=== PATIENT | female | born 1965 | race Caucasian/White ===

== ENCOUNTER → 2016-10-02 | Outpatient (CLI) | payer OTHER ==
[~2016-10-02] MED LIST: BACL10TA2 PO; BENEPOW8; BUPIVACAINE HCL 0.25% 30 ML VIAL As Ordered ONE; ISOVUE-M 300 61% 15ML VIAL (Q9967) As Ordered ONE; LIDOCAINE 1% SDV INJ 30 ML VIAL As Ordered ONE; MOBI15TA PO; Maxalt; NEUR300C PO; ROBA750T4 PO; TIZA2CAP3 PO; TOPI100T; TRAM50TA2 PO
--- NOTE | 2016-10-02 11:37 | REP ---
Partial lumbar spine series: two views. History: Facet block for pain. 18 seconds of fluoroscopy time is reported. Findings: A sequence of two fluoroscopically obtained intraprocedural spot radiographs of the lumbar spine document needle position and contrast injections associated with facet injection procedures. Signed by Rigoberto Munson MD 10/02/2016 12:09 P
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
== END ==
LOC: M PAIN 10:10
PROVIDERS: ATTEND Anesthesiology
DX: G89.29 Other chronic pain (principal); M54.5 Low back pain; M47.817 Spondylosis without myelopathy or radiculopathy, lumbosacral region; M47.816 Spondylosis without myelopathy or radiculopathy, lumbar region; Z79.84 Long term (current) use of oral hypoglycemic drugs; Z79.899 Other long term (current) drug therapy; Z91.030 Bee allergy status; Z88.8 Allergy status to other drugs, medicaments and biological substances

== ENCOUNTER 2016-11-06 22:06 | Emergency (ER) | payer OTHER ==
[~2016-11-06 22:06] MED LIST changes: -BUPIVACAINE HCL 0.25% 30 ML VIAL As Ordered ONE; -ISOVUE-M 300 61% 15ML VIAL (Q9967) As Ordered ONE; -LIDOCAINE 1% SDV INJ 30 ML VIAL As Ordered ONE
[2016-11-06] MEDS ORDERED: diphenhydrAMINE 25 MG CAP As Ordered ONE (23:34)
[2016-11-06] MEDS ORDERED: predniSONE 20 MG TAB As Ordered ONE (23:35)
[2016-11-06] MEDS ORDERED: CEPHALEXIN 250 MG CAP As Ordered ONE (23:35)
--- NOTE | 2016-11-06 23:51 | EDDOCDS ---
Nurse's Notes [facility] Name: Debra Hamilton Age: 51 yrs Sex: Female : 1965 Arrival Date: 11/06/2016 Time: 22:06 Bed Triage 1 Private MD: Diagnosis: Cellulitis and acute lymphangitis of other parts of limb-left forearm Presentation: 11/06 22:11 Presenting complaint: Patient states: flea bites on left hand . swelling, itching in rs3 left forearm for 2 days. Onset: The symptoms/episode began/occurred gradually. This patient has not experienced a previous allergic reaction. Anaphylaxis evaluation, the patient reports or I have noted the following symptoms which indicate a significant risk of anaphylaxis: no signs or symptoms of anaphylaxis were noted. Adult Sepsis Screening: The patient does not have new or worsening altered mentation. Patient's respiratory rate is less than 22. Systolic blood pressure is greater than 100. Patient has a qSOFA score of 0- Negative Sepsis Screen. Suicide/Homicide risk assessment- the patient denies having any suicidal and/or homicidal ideations and does not present with any other emotional, behavioral or mental health complaints. Status: Patient is not a family services assistant or dependent. Transition of care: patient was not received from another setting of care. 22:11 Acuity: CHRIS Level 4 rs3 22:11 Method Of Arrival: Walkin/Carried/Asstd rs3 Triage Assessment: 22:15 General: Appears in no apparent distress. Pain: Denies pain. Location: left arm. HIV rs3 screening NA for this visit Offered previously. Respiratory: Reports no respiratory complaints. 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 metformin 500 mg Oral tab 1 tab 2 times per day 2. Marinol Oral 1 cap once daily 3. Spiriva Respimat 1.25 mcg/actuation inhalation mist 2 puffs once daily - PMHx: Chronic Pain; Diabetes - NIDDM: controlled; - PSHx: ; Cholecystectomy; - Social history: Smoking status: Patient uses tobacco products, light tobacco smoker. No barriers to communication noted, The patient speaks fluent Hungarian. - Family history: Not pertinent. - : The pt / caregiver states he / she is not on anticoagulants. Home medication list is obtained from the patient. - Exposure Risk Screening:: None identified. Screenin:38 Screening information is obtained from the patient. Fall risk: No risks identified. lf1 Assistance ADL's: requires no assistance with activities of daily living. Abuse/DV Screen: The patient / caregiver reports he/she is:. Abuse/DV Screen: The patient / caregiver reports he/she is: not in a situation that causes fear, pain or injury. Nutritional screening: No deficits noted. Advance Directives: Currently, there is no health care proxy. home support is adequate. Assessment: 23:38 Adult Sepsis Screening: The patient does not have new or worsening altered mentation. lf1 Patient's respiratory rate is less than 22. Systolic blood pressure is greater than 100. Patient has a qSOFA score of 0- Negative Sepsis Screen. General: Appears in no apparent distress, Behavior is cooperative. Pain: Location: left hand Pain currently is 1 out of 10 on a pain scale. Neurological: Level of Consciousness is awake, alert. EENT: No deficits noted. Cardiovascular: Chest pain is denied. Respiratory: Respiratory effort is even, unlabored. GI: Denies nausea, vomiting. Derm: Swollen area noted on left hand. Vital Signs: 22:09 BP 148 / 72; Pulse 81; Resp 17; Temp 97.1(O); Pulse Ox 98% on R/A; Weight 43.09 kg (R); lr2 Height 5 ft. 2 in. (157.48 cm) (R); 23:38 BP 133 / 77; Pulse 73; Resp 16; Pulse Ox 97% on R/A; Pain 1/10; lf1 22:09 Body Mass Index 17.38 (43.09 kg, 157.48 cm) lr2 Vitals: 22:09 Log In Time: November 06, 2016 at 22:06. lr2 ED Course: 22:08 Patient visited by Sravanthi Mcfarland. lr2 22:08 Patient moved to Waiting lr2 22:08 Patient moved to Pre RCE lr2 22:13 Triage Initiated rs3 23:14 Patient moved to Triage 1 jo3 23:23 [facility] ke 23:23 Patient visited by Iggy Jonhson FNP. ke 23:23 Patient visited by Iggy Johnson FNP. ke 23:38 No IV's were initiated during this patient's visit. No procedures done that require lf1 assistance. 23:50 The patient / caregiver is instructed regarding the plan of care and ED course. lf1 Administered Medications: 23:48 Drug: diphenhydrAMINE 50 mg [diphenhydramine 25 mg capsule (2 caps)] {Note: meds lf1 dispensed home with pt. - she is driving.} Route: PO; 23:49 Drug: Cephalexin 500 mg [cephalexin 250 mg capsule (2 caps)] Route: PO; lf1 23:49 Follow up: Response: Pt left department before re-evaluation is appropriate lf1 23:49 Drug: predniSONE 40 mg [prednisone 20 mg tablet (2 tabs)] Route: PO; lf1 23:50 Follow up: Response: Pt left department before re-evaluation is appropriate lf1 Order Results: There are currently no results for this order. Outcome: 23:34 Discharge ordered by Provider. ke 23:50 Discharge Assessment: Patient awake, alert and oriented x 3. No cognitive and/or lf1 functional deficits noted. Patient verbalized understanding of disposition instructions. Patient awake and alert. Oriented to person, place and time. Patient verbalized understanding of disposition instructions. Patient has no functional deficits. patient administered narcotics - no. The following High Risk Discharge criteria are identified: None. Discharged to home ambulatory. Condition: unchanged. Discharge instructions given to patient, Instructed on discharge instructions, follow up and referral plans. medication usage, Demonstrated understanding of instructions, medications, Pt was receptive of discharge instructions/ teaching. Prescriptions given X 3. No special radiology studies were completed. Property :Personal belongings accompany Pt. 23:51 Patient left the ED. lf1 Signatures: Iggy Johnson, LEGAL DEPARTMENT MANAGER LEGAL DEPARTMENT MANAGER Nakia NguyenRN RN jo3 Skye HensleyRN RN lf1 Mary Ellen Rosario,RN RN karoline3 Sravanthi Mcfarland2 MTDD
--- NOTE | 2016-11-06 23:51 | EDDOCDS ---
Physician Documentation [facility] Name: Debra Hamilton Age: 51 yrs Sex: Female : 1965 Arrival Date: 11/06/2016 Time: 22:06 Bed Triage 1 Private MD: Disposition: 11/06/16 23:34 Discharged to Home/Self Care. Impression: Cellulitis and acute lymphangitis of other parts of limb - left forearm. - Condition is Stable. - Discharge Instructions: Allergies, Cellulitis. - Prescriptions for Benadryl 25 mg Oral Capsule - take 1 capsule by ORAL route every 6 hours As needed; 30 tablet. Keflex 500 mg Oral Capsule - take 1 capsule by ORAL route every 6 hours for 10 days; 40 capsule. Prednisone 20 mg Oral Tablet - take 1 tablet by ORAL route once daily for 5 days; 5 tablet. - Medication Reconciliation, Local Pharmacy Hours form. - Follow up: Private Physician; When: 1 - 2 days; Reason: Recheck today's complaints, Continuance of care. - Problem is an ongoing problem. - Symptoms are unchanged. - Notes: return if worse Historical: - Allergies: Bees; GABAPENTIN (makes me crazy); - Home Meds: 1. metformin 500 mg Oral tab 1 tab 2 times per day 2. Marinol Oral 1 cap once daily 3. Spiriva Respimat 1.25 mcg/actuation inhalation mist 2 puffs once daily - PMHx: Chronic Pain; Diabetes - NIDDM: controlled; - PSHx: ; Cholecystectomy; - Social history: Smoking status: Patient uses tobacco products, light tobacco smoker. No barriers to communication noted, The patient speaks fluent Ukrainian. - Family history: Not pertinent. - : The pt / caregiver states he / she is not on anticoagulants. Home medication list is obtained from the patient. - Exposure Risk Screening:: None identified. 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 2 in. (157.48 cm) (R); 23:38 BP 133 / 77; Pulse 73; Resp 16; Pulse Ox 97% on R/A; Pain 1/10; lf1 22:09 Body Mass Index 17.38 (43.09 kg, 157.48 cm) lr2 MDM: 23:32 Cephalexin 500 mg PO once ordered. ke 23:32 predniSONE 40 mg PO once; administer with food or milk ordered. ke 23:32 diphenhydrAMINE 50 mg PO once ordered. ke 23:39 Financial registration complete. hs2 Administered Medications: 23:48 Drug: diphenhydrAMINE 50 mg [diphenhydramine 25 mg capsule (2 caps)] {Note: meds lf1 dispensed home with pt. - she is driving.} Route: PO; 23:49 Drug: Cephalexin 500 mg [cephalexin 250 mg capsule (2 caps)] Route: PO; lf1 23:49 Follow up: Response: Pt left department before re-evaluation is appropriate lf1 23:49 Drug: predniSONE 40 mg [prednisone 20 mg tablet (2 tabs)] Route: PO; lf1 23:50 Follow up: Response: Pt left department before re-evaluation is appropriate [facility] Signatures: Iggy Johnson, PHOTOSTAT OPERATOR HELPER PHOTOSTAT OPERATOR HELPER Skye AvitiaRN RN lf1 Mary Ellen RosarioRN RN rs3 Shelia Appiah, Reg Reg hs2 MTDD
--- NOTE | 2016-11-09 00:52 | EDDOCDS ---
Physician Documentation [facility] Name: Debra Hamilton Age: 51 yrs Sex: Female : 1965 Arrival Date: 11/06/2016 Time: 22:06 Bed Triage 1 Private MD: Disposition: 11/06/16 23:34 Discharged to Home/Self Care. Impression: Cellulitis and acute lymphangitis of other parts of limb - left forearm. - Condition is Stable. - Discharge Instructions: Allergies, Cellulitis. - Prescriptions for Benadryl 25 mg Oral Capsule - take 1 capsule by ORAL route every 6 hours As needed; 30 tablet. Keflex 500 mg Oral Capsule - take 1 capsule by ORAL route every 6 hours for 10 days; 40 capsule. Prednisone 20 mg Oral Tablet - take 1 tablet by ORAL route once daily for 5 days; 5 tablet. - Medication Reconciliation, Local Pharmacy Hours form. - Follow up: Private Physician; When: 1 - 2 days; Reason: Recheck today's complaints, Continuance of care. - Problem is an ongoing problem. - Symptoms are unchanged. - Notes: return if worse Historical: - Allergies: Bees; GABAPENTIN (makes me crazy); - Home Meds: 1. metformin 500 mg Oral tab 1 tab 2 times per day 2. Marinol Oral 1 cap once daily 3. Spiriva Respimat 1.25 mcg/actuation inhalation mist 2 puffs once daily - PMHx: Chronic Pain; Diabetes - NIDDM: controlled; - PSHx: ; Cholecystectomy; - Social history: Smoking status: Patient uses tobacco products, light tobacco smoker. No barriers to communication noted, The patient speaks fluent Faroese. - Family history: Not pertinent. - : The pt / caregiver states he / she is not on anticoagulants. Home medication list is obtained from the patient. - Exposure Risk Screening:: None identified. 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 2 in. (157.48 cm) (R); 23:38 BP 133 / 77; Pulse 73; Resp 16; Pulse Ox 97% on R/A; Pain 1/10; lf1 22:09 Body Mass Index 17.38 (43.09 kg, 157.48 cm) lr2 MDM: 23:32 Cephalexin 500 mg PO once ordered. ke 23:32 predniSONE 40 mg PO once; administer with food or milk ordered. ke 23:32 diphenhydrAMINE 50 mg PO once ordered. ke 23:39 Financial registration complete. hs2 11/07 00:04 [facility] Payment Agreement was scanned into [employer] and attached to record. hs2 12:04 T-Sheet-- Draft Copy was scanned into [employer] and attached to record. gb Administered Medications: 11/06 23:48 Drug: diphenhydrAMINE 50 mg [diphenhydramine 25 mg capsule (2 caps)] {Note: meds lf1 dispensed home with pt. - she is driving.} Route: PO; 23:49 Drug: Cephalexin 500 mg [cephalexin 250 mg capsule (2 caps)] Route: PO; lf1 23:49 Follow up: Response: Pt left department before re-evaluation is appropriate lf1 23:49 Drug: predniSONE 40 mg [prednisone 20 mg tablet (2 tabs)] Route: PO; lf1 23:50 Follow up: Response: Pt left department before re-evaluation is appropriate lf1 Signatures: Mary Palencia, Reg Reg gb Iggy Johnson, IMPORT CUSTOMS CLEARING AGENT IMPORT CUSTOMS CLEARING AGENT Skye AvitiaRN RN lf1 Mary Ellen Rosario RN RN rs3 Shelia Appiah, Reg Reg hs2 The chart was reviewed and I authenticate all verbal orders and agree with the evaluation and treatment provided.Attachments: 11/07 00:04 [facility] Payment Agreement hs2 12:04 T-Sheet-- Draft Copy gb Chart Complete MTDD
--- NOTE | 2016-11-09 00:52 | EDDOCDS ---
Physician Documentation [facility] Name: Debra Hamilton Age: 51 yrs Sex: Female : 1965 Arrival Date: 11/06/2016 Time: 22:06 Bed Triage 1 Private MD: Disposition: 11/06/16 23:34 Discharged to Home/Self Care. Impression: Cellulitis and acute lymphangitis of other parts of limb - left forearm. - Condition is Stable. - Discharge Instructions: Allergies, Cellulitis. - Prescriptions for Benadryl 25 mg Oral Capsule - take 1 capsule by ORAL route every 6 hours As needed; 30 tablet. Keflex 500 mg Oral Capsule - take 1 capsule by ORAL route every 6 hours for 10 days; 40 capsule. Prednisone 20 mg Oral Tablet - take 1 tablet by ORAL route once daily for 5 days; 5 tablet. - Medication Reconciliation, Local Pharmacy Hours form. - Follow up: Private Physician; When: 1 - 2 days; Reason: Recheck today's complaints, Continuance of care. - Problem is an ongoing problem. - Symptoms are unchanged. - Notes: return if worse Historical: - Allergies: Bees; GABAPENTIN (makes me crazy); - Home Meds: 1. metformin 500 mg Oral tab 1 tab 2 times per day 2. Marinol Oral 1 cap once daily 3. Spiriva Respimat 1.25 mcg/actuation inhalation mist 2 puffs once daily - PMHx: Chronic Pain; Diabetes - NIDDM: controlled; - PSHx: ; Cholecystectomy; - Social history: Smoking status: Patient uses tobacco products, light tobacco smoker. No barriers to communication noted, The patient speaks fluent Serbian. - Family history: Not pertinent. - : The pt / caregiver states he / she is not on anticoagulants. Home medication list is obtained from the patient. - Exposure Risk Screening:: None identified. 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 2 in. (157.48 cm) (R); 23:38 BP 133 / 77; Pulse 73; Resp 16; Pulse Ox 97% on R/A; Pain 1/10; lf1 22:09 Body Mass Index 17.38 (43.09 kg, 157.48 cm) lr2 MDM: 23:32 Cephalexin 500 mg PO once ordered. ke 23:32 predniSONE 40 mg PO once; administer with food or milk ordered. ke 23:32 diphenhydrAMINE 50 mg PO once ordered. ke 23:39 Financial registration complete. hs2 11/07 00:04 [facility] Payment Agreement was scanned into [employer] and attached to record. hs2 12:04 T-Sheet-- Draft Copy was scanned into [employer] and attached to record. gb Administered Medications: 11/06 23:48 Drug: diphenhydrAMINE 50 mg [diphenhydramine 25 mg capsule (2 caps)] {Note: meds lf1 dispensed home with pt. - she is driving.} Route: PO; 23:49 Drug: Cephalexin 500 mg [cephalexin 250 mg capsule (2 caps)] Route: PO; lf1 23:49 Follow up: Response: Pt left department before re-evaluation is appropriate lf1 23:49 Drug: predniSONE 40 mg [prednisone 20 mg tablet (2 tabs)] Route: PO; lf1 23:50 Follow up: Response: Pt left department before re-evaluation is appropriate lf1 Signatures: Mary Palencia, Reg Reg gb Iggy Johnson, BUSINESS INSTRUCTOR BUSINESS INSTRUCTOR Skye AvitiaRN RN lf1 Mary Ellen Rosario RN RN rs3 Shelia Appiah, Reg Reg hs2 The chart was reviewed and I authenticate all verbal orders and agree with the evaluation and treatment provided.Attachments: 11/07 00:04 [facility] Payment Agreement hs2 12:04 T-Sheet-- Draft Copy gb Chart Complete MTDD
--- NOTE | 2016-11-09 00:52 | EDDOCDS ---
Nurse's Notes [facility] Name: Debra Hamilton Age: 51 yrs Sex: Female : 1965 Arrival Date: 11/06/2016 Time: 22:06 Bed Triage 1 Private MD: Diagnosis: Cellulitis and acute lymphangitis of other parts of limb-left forearm Presentation: 11/06 22:11 Presenting complaint: Patient states: flea bites on left hand . swelling, itching in rs3 left forearm for 2 days. Onset: The symptoms/episode began/occurred gradually. This patient has not experienced a previous allergic reaction. Anaphylaxis evaluation, the patient reports or I have noted the following symptoms which indicate a significant risk of anaphylaxis: no signs or symptoms of anaphylaxis were noted. Adult Sepsis Screening: The patient does not have new or worsening altered mentation. Patient's respiratory rate is less than 22. Systolic blood pressure is greater than 100. Patient has a qSOFA score of 0- Negative Sepsis Screen. Suicide/Homicide risk assessment- the patient denies having any suicidal and/or homicidal ideations and does not present with any other emotional, behavioral or mental health complaints. Status: Patient is not a customer service analyst or dependent. Transition of care: patient was not received from another setting of care. 22:11 Acuity: CHRIS Level 4 rs3 22:11 Method Of Arrival: Walkin/Carried/Asstd rs3 Triage Assessment: 22:15 General: Appears in no apparent distress. Pain: Denies pain. Location: left arm. HIV rs3 screening NA for this visit Offered previously. Respiratory: Reports no respiratory complaints. MOHS SURGEON: 22:16 LMP N/A - Post-menopause rs3 Historical: - Allergies: Bees; GABAPENTIN (makes me crazy); - Home Meds: 1. metformin 500 mg Oral tab 1 tab 2 times per day 2. Marinol Oral 1 cap once daily 3. Spiriva Respimat 1.25 mcg/actuation inhalation mist 2 puffs once daily - PMHx: Chronic Pain; Diabetes - NIDDM: controlled; - PSHx: ; Cholecystectomy; - Social history: Smoking status: Patient uses tobacco products, light tobacco smoker. No barriers to communication noted, The patient speaks fluent Turkmen. - Family history: Not pertinent. - : The pt / caregiver states he / she is not on anticoagulants. Home medication list is obtained from the patient. - Exposure Risk Screening:: None identified. Screenin:38 Screening information is obtained from the patient. Fall risk: No risks identified. lf1 Assistance ADL's: requires no assistance with activities of daily living. Abuse/DV Screen: The patient / caregiver reports he/she is:. Abuse/DV Screen: The patient / caregiver reports he/she is: not in a situation that causes fear, pain or injury. Nutritional screening: No deficits noted. Advance Directives: Currently, there is no health care proxy. home support is adequate. Assessment: 23:38 Adult Sepsis Screening: The patient does not have new or worsening altered mentation. lf1 Patient's respiratory rate is less than 22. Systolic blood pressure is greater than 100. Patient has a qSOFA score of 0- Negative Sepsis Screen. General: Appears in no apparent distress, Behavior is cooperative. Pain: Location: left hand Pain currently is 1 out of 10 on a pain scale. Neurological: Level of Consciousness is awake, alert. EENT: No deficits noted. Cardiovascular: Chest pain is denied. Respiratory: Respiratory effort is even, unlabored. GI: Denies nausea, vomiting. Derm: Swollen area noted on left hand. Vital Signs: 22:09 BP 148 / 72; Pulse 81; Resp 17; Temp 97.1(O); Pulse Ox 98% on R/A; Weight 43.09 kg (R); lr2 Height 5 ft. 2 in. (157.48 cm) (R); 23:38 BP 133 / 77; Pulse 73; Resp 16; Pulse Ox 97% on R/A; Pain 1/10; lf1 22:09 Body Mass Index 17.38 (43.09 kg, 157.48 cm) lr2 Vitals: 22:09 Log In Time: November 06, 2016 at 22:06. lr2 ED Course: 22:08 Patient visited by Sravanthi Mcfarland. lr2 22:08 Patient moved to Waiting lr2 22:08 Patient moved to Pre RCE lr2 22:13 Triage Initiated rs3 23:14 Patient moved to Triage 1 jo3 23:23 Iggy Johnson FNP is [facility]. ke 23:23 Patient visited by Iggy Johnson FNP. ke 23:23 Patient visited by Iggy Johnson FNP. ke 23:38 No IV's were initiated during this patient's visit. No procedures done that require lf1 assistance. 23:50 The patient / caregiver is instructed regarding the plan of care and ED course. lf1 11/07 00:04 [facility] Payment Agreement was scanned into [employer] and attached to record. hs2 12:04 T-Sheet-- Draft Copy was scanned into [employer] and attached to record. gb Administered Medications: 11/06 23:48 Drug: diphenhydrAMINE 50 mg [diphenhydramine 25 mg capsule (2 caps)] {Note: meds lf1 dispensed home with pt. - she is driving.} Route: PO; 23:49 Drug: Cephalexin 500 mg [cephalexin 250 mg capsule (2 caps)] Route: PO; lf1 23:49 Follow up: Response: Pt left department before re-evaluation is appropriate lf1 23:49 Drug: predniSONE 40 mg [prednisone 20 mg tablet (2 tabs)] Route: PO; lf1 23:50 Follow up: Response: Pt left department before re-evaluation is appropriate lf1 Order Results: There are currently no results for this order. Outcome: 23:34 Discharge ordered by Provider. ke 23:50 Discharge Assessment: Patient awake, alert and oriented x 3. No cognitive and/or lf1 functional deficits noted. Patient verbalized understanding of disposition instructions. Patient awake and alert. Oriented to person, place and time. Patient verbalized understanding of disposition instructions. Patient has no functional deficits. patient administered narcotics - no. The following High Risk Discharge criteria are identified: None. Discharged to home ambulatory. Condition: unchanged. Discharge instructions given to patient, Instructed on discharge instructions, follow up and referral plans. medication usage, Demonstrated understanding of instructions, medications, Pt was receptive of discharge instructions/ teaching. Prescriptions given X 3. No special radiology studies were completed. Property :Personal belongings accompany Pt. 23:51 Patient left the ED. lf1 Signatures: Mary Palencia, Reg Reg gb Iggy Johnson, PRODUCTION DRILLING MACHINE OPERATOR PRODUCTION DRILLING MACHINE OPERATOR Nakia NguyenRN RN theresa3 Skye Hensley RN RN lf1 Mary Ellen Rosario RN RN rs3 Shelia Appiah, Reg Reg hs2 Sravanthi Mcfarland2 Chart Complete MTDD
== END 2016-11-06 23:51 | disposition home or self-care (01) ==
LOC: M ED 22:06
DX: L03.114 Cellulitis of left upper limb (principal); G89.29 Other chronic pain; E11.9 Type 2 diabetes mellitus without complications; F17.210 Nicotine dependence, cigarettes, uncomplicated; Z79.84 Long term (current) use of oral hypoglycemic drugs; Z91.030 Bee allergy status; Z79.899 Other long term (current) drug therapy; Z88.8 Allergy status to other drugs, medicaments and biological substances

== ENCOUNTER → 2016-11-27 | Outpatient (CLI) | payer OTHER ==
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
== END ==
LOC: M PAIN 14:40
PROVIDERS: ATTEND Nurse Practitioner Family
DX: Z09 Encounter for follow-up examination after completed treatment for conditions other than malignant neoplasm (principal); G89.21 Chronic pain due to trauma; M47.816 Spondylosis without myelopathy or radiculopathy, lumbar region; M79.1 Myalgia; J44.9 Chronic obstructive pulmonary disease, unspecified; Z91.030 Bee allergy status; Z88.8 Allergy status to other drugs, medicaments and biological substances; Z79.84 Long term (current) use of oral hypoglycemic drugs; Z79.899 Other long term (current) drug therapy

== ENCOUNTER → 2016-12-10 | Outpatient (REF) | payer OTHER | LOC: M LAB REF 12:41 | PROVIDERS: ATTEND Physician Assistant | DX: J02.9 Acute pharyngitis, unspecified (principal) ==

== ENCOUNTER → 2017-01-21 | Outpatient (CLI) | payer OTHER ==
[~2017-01-21] MED LIST changes: +BUPIVACAINE HCL 0.25% 30 ML VIAL As Ordered ONE; +ISOVUE-M 300 61% 15ML VIAL (Q9967) As Ordered ONE; +LIDOCAINE 1% SDV INJ 30 ML VIAL As Ordered ONE; +TRIAMCINOLONE ACETONIDE SUSP 40 MG/ML VIAL (J3301) As Ordered ONE
--- NOTE | 2017-01-21 15:48 | REP ---
FACET BLOCK: The images were reviewed with Dr. Gambino. The patient has a history of back pain. The portable C-arm was provided in the OR for Dr. Benitez for fluoroscopy guidance. Three intraoperative fluoroscopic spot films were obtained for needle placement verification for right lumbar facet injection. The films are on the PACs system and are available for review. 31 seconds of fluoroscopic time was utilized for this procedure. Reviewed by MEME Cox 01/21/2017 04:17 PEdited and Signed by Victor M Gambino MD 01/21/2017 04:42 P
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
== END ==
LOC: M PAIN 11:00
PROVIDERS: ATTEND Anesthesiology
DX: G89.29 Other chronic pain (principal); M47.816 Spondylosis without myelopathy or radiculopathy, lumbar region; M47.817 Spondylosis without myelopathy or radiculopathy, lumbosacral region; M79.1 Myalgia; J44.9 Chronic obstructive pulmonary disease, unspecified; Z91.030 Bee allergy status; Z88.8 Allergy status to other drugs, medicaments and biological substances; Z79.899 Other long term (current) drug therapy
CPT/HCPCS: 64635; 64636; J3301; Q9967

== ENCOUNTER → 2017-02-11 | Outpatient (CLI) | payer OTHER ==
[~2017-02-11] MED LIST changes: -BUPIVACAINE HCL 0.25% 30 ML VIAL As Ordered ONE; -ISOVUE-M 300 61% 15ML VIAL (Q9967) As Ordered ONE; -LIDOCAINE 1% SDV INJ 30 ML VIAL As Ordered ONE; -TRIAMCINOLONE ACETONIDE SUSP 40 MG/ML VIAL (J3301) As Ordered ONE
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
== END ==
LOC: M PAIN 14:40
PROVIDERS: ATTEND Nurse Practitioner Family
DX: G89.29 Other chronic pain (principal); M79.1 Myalgia; M47.817 Spondylosis without myelopathy or radiculopathy, lumbosacral region; J44.9 Chronic obstructive pulmonary disease, unspecified; Z88.0 Allergy status to penicillin; Z88.8 Allergy status to other drugs, medicaments and biological substances; Z79.899 Other long term (current) drug therapy

== ENCOUNTER → 2017-02-23 | Outpatient (CLI) | payer OTHER ==
[~2017-02-23] MED LIST changes: +BUPIVACAINE HCL 0.25% 10 ML VIAL As Ordered ONE; +BUPIVACAINE HCL 0.25% 30 ML VIAL As Ordered ONE; +TRIAMCINOLONE ACETONIDE SUSP 40 MG/ML VIAL (J3301) As Ordered ONE
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
== END ==
LOC: M PAIN 13:40
PROVIDERS: ATTEND Anesthesiology
DX: G89.29 Other chronic pain (principal); M79.1 Myalgia; M25.511 Pain in right shoulder; M54.2 Cervicalgia; M54.5 Low back pain; J44.9 Chronic obstructive pulmonary disease, unspecified; Z72.0 Tobacco use; Z91.030 Bee allergy status; Z88.8 Allergy status to other drugs, medicaments and biological substances; Z79.891 Long term (current) use of opiate analgesic; Z79.899 Other long term (current) drug therapy

== ENCOUNTER → 2017-03-13 | Outpatient (CLI) | payer OTHER ==
[~2017-03-13] MED LIST changes: -BUPIVACAINE HCL 0.25% 10 ML VIAL As Ordered ONE; -BUPIVACAINE HCL 0.25% 30 ML VIAL As Ordered ONE; -TRIAMCINOLONE ACETONIDE SUSP 40 MG/ML VIAL (J3301) As Ordered ONE
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
== END ==
LOC: M PAIN 14:20
PROVIDERS: ATTEND Anesthesiology
DX: M79.1 Myalgia (principal); M54.5 Low back pain; M54.2 Cervicalgia; Z79.891 Long term (current) use of opiate analgesic; Z79.899 Other long term (current) drug therapy; F17.210 Nicotine dependence, cigarettes, uncomplicated; J44.9 Chronic obstructive pulmonary disease, unspecified; Z88.8 Allergy status to other drugs, medicaments and biological substances; Z91.030 Bee allergy status

== ENCOUNTER → 2017-04-09 | Outpatient (CLI) | payer OTHER ==
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
== END ==
LOC: M PAIN 14:20
PROVIDERS: ATTEND Anesthesiology
DX: G89.29 Other chronic pain (principal); M51.16 Intervertebral disc disorders with radiculopathy, lumbar region; M79.1 Myalgia; J44.9 Chronic obstructive pulmonary disease, unspecified; Z91.030 Bee allergy status; Z88.8 Allergy status to other drugs, medicaments and biological substances; Z79.891 Long term (current) use of opiate analgesic; Z79.899 Other long term (current) drug therapy

== ENCOUNTER → 2017-04-27 | Outpatient (CLI) | payer OTHER ==
[~2017-04-27] MED LIST changes: +BUPIVACAINE HCL 0.25% 10 ML VIAL As Ordered ONE; +BUPIVACAINE HCL 0.25% 30 ML VIAL As Ordered ONE; +TRIAMCINOLONE ACETONIDE SUSP 40 MG/ML VIAL (J3301) As Ordered ONE
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
== END ==
LOC: M PAIN 08:40
PROVIDERS: ATTEND Anesthesiology
DX: G89.29 Other chronic pain (principal); M54.2 Cervicalgia; M54.5 Low back pain; M79.1 Myalgia; J44.9 Chronic obstructive pulmonary disease, unspecified; Z91.030 Bee allergy status; Z88.8 Allergy status to other drugs, medicaments and biological substances; Z79.899 Other long term (current) drug therapy
CPT/HCPCS: 20553; J3301

== ENCOUNTER → 2017-06-16 | Outpatient (CLI) | payer OTHER ==
[~2017-06-16] MED LIST changes: -BUPIVACAINE HCL 0.25% 10 ML VIAL As Ordered ONE; -BUPIVACAINE HCL 0.25% 30 ML VIAL As Ordered ONE; -TRIAMCINOLONE ACETONIDE SUSP 40 MG/ML VIAL (J3301) As Ordered ONE
== END ==
LOC: M PAIN 11:00
PROVIDERS: ATTEND Nurse Practitioner Family
DX: Z53.29 Procedure and treatment not carried out because of patient's decision for other reasons (principal)

== ENCOUNTER → 2017-07-01 | Outpatient (CLI) | payer OTHER ==
[~2017-07-01] MED LIST changes: +BUPIVACAINE HCL 0.25% 10 ML VIAL As Ordered ONE; +BUPIVACAINE HCL 0.25% 30 ML VIAL As Ordered ONE; +TRIAMCINOLONE ACETONIDE SUSP 40 MG/ML VIAL (J3301) As Ordered ONE
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
== END ==
LOC: M PAIN 09:15
PROVIDERS: ATTEND Nurse Practitioner Family
DX: G89.29 Other chronic pain (principal); M47.817 Spondylosis without myelopathy or radiculopathy, lumbosacral region; M79.1 Myalgia; J44.9 Chronic obstructive pulmonary disease, unspecified; Z91.030 Bee allergy status; Z88.8 Allergy status to other drugs, medicaments and biological substances; Z79.891 Long term (current) use of opiate analgesic; Z79.899 Other long term (current) drug therapy; Z87.891 Personal history of nicotine dependence

== ENCOUNTER → 2017-07-02 | Outpatient (CLI) | payer OTHER ==
[~2017-07-02] MED LIST changes: -BUPIVACAINE HCL 0.25% 10 ML VIAL As Ordered ONE; -BUPIVACAINE HCL 0.25% 30 ML VIAL As Ordered ONE; +BUPIVACAINE HCL 0.25% 30 ML VIAL ONE; -TRIAMCINOLONE ACETONIDE SUSP 40 MG/ML VIAL (J3301) As Ordered ONE
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
== END ==
LOC: M PAIN 14:00
PROVIDERS: ATTEND Anesthesiology
DX: G89.29 Other chronic pain (principal); M54.2 Cervicalgia; M54.6 Pain in thoracic spine; M79.1 Myalgia; J44.9 Chronic obstructive pulmonary disease, unspecified; Z91.030 Bee allergy status; Z88.8 Allergy status to other drugs, medicaments and biological substances; Z79.891 Long term (current) use of opiate analgesic; Z79.899 Other long term (current) drug therapy; Z87.891 Personal history of nicotine dependence

== ENCOUNTER 2017-07-20 07:46 | Outpatient (RCR) | payer OTHER ==
[~2017-07-20 07:46] MED LIST changes: -BUPIVACAINE HCL 0.25% 30 ML VIAL ONE
== END 2017-07-21 ==
LOC: M PT 07:46
PROVIDERS: ATTEND Nurse Practitioner Family
DX: M79.1 Myalgia (principal); M47.817 Spondylosis without myelopathy or radiculopathy, lumbosacral region

== ENCOUNTER 2017-08-17 08:00 | Outpatient (RCR) | payer OTHER | END 2017-08-20 | LOC: M PT 08:00 | PROVIDERS: ATTEND Nurse Practitioner Family | DX: M79.1 Myalgia (principal); M47.817 Spondylosis without myelopathy or radiculopathy, lumbosacral region ==

== ENCOUNTER 2017-09-15 08:02 | Emergency (ER) | payer OTHER ==
[2017-09-15] MEDS: predniSONE 20 MG TAB PO (08:40)
== END 2017-09-15 08:47 | disposition home or self-care (01) ==
LOC: M ED 08:02
DX: M65.841 Other synovitis and tenosynovitis, right hand (principal); Z91.5 Personal history of self-harm; Z85.41 Personal history of malignant neoplasm of cervix uteri; G89.29 Other chronic pain; M54.9 Dorsalgia, unspecified; Z87.891 Personal history of nicotine dependence; Z91.030 Bee allergy status; Z88.8 Allergy status to other drugs, medicaments and biological substances
CPT/HCPCS: 99283

== ENCOUNTER 2017-12-05 10:19 | Emergency (ER) | payer OTHER ==
[2017-12-05] MEDS: PERCOCET 5MG/325MG TAB PO (10:58)
[2017-12-05] MEDS: ONDANSETRON 4 MG ORAL DISINTEGRATING TAB (S0181) PO (10:59)
[2017-12-05 11:09] LABS: BASO % 0.6 % (0.0-1.0); EOS % 0.4 % (0.0-3.0); HEMATOCRIT 49.1 % (36.0-47.0); HEMOGLOBIN 16.4 g/dl (12.0-16.0); IMMATURE GRANULOCYTE % 0.2 % (0-3.0); LYMPH # 0.8 10^3/uL (1.5-4.5); LYMPH % 14.9 % (24.0-44.0); MEAN CORPUSCULAR HEMOGLOBIN 30.9 pg (27.0-33.0); MEAN CORPUSCULAR HGB CONC 33.4 g/dl (32.0-36.5); MEAN CORPUSCULAR VOLUME 92.5 fl (80.0-96.0); MONO # 0.5 10^3/uL (0.0-0.8); MONO % 10.4 % (0.0-5.0); NEUTROPHILS # 3.8 10^3/uL (1.8-7.7); NEUTROPHILS % 73.5 % (36.0-66.0); PLATELET COUNT, AUTOMATED 153 10^3/uL (150-450); RED BLOOD COUNT 5.31 10^6/uL (4.00-5.40); RED CELL DISTRIBUTION WIDTH 12.5 % (11.5-14.5); WHITE BLOOD COUNT 5.2 10^3/uL (4.0-10.0)
[2017-12-05 11:31] LABS: AMPHETAMINES LEVEL URINE NEGATIVE (NEGATIVE); BARBITURATES URINE NEGATIVE (NEGATIVE); BENZODIAZEPINES URINE NEGATIVE (NEGATIVE); CANNABINOIDS URINE POSITIVE (NEGATIVE); COCAINE METABOLITE URINE NEGATIVE (NEGATIVE); METHADONE URINE NEGATIVE (NEGATIVE); OPIATES URINE NEGATIVE (NEGATIVE); PHENCYCLIDINE URINE NEGATIVE (NEGATIVE)
[2017-12-05 11:41] LABS: ALBUMIN 4.1 GM/DL (3.2-5.2); ALBUMIN/GLOBULIN RATIO 1.17 (1.00-1.93); ALKALINE PHOSPHATASE 99 U/L (45-117); ALT/SGPT 238 U/L (12-78); ANION GAP 10 MEQ/L (8-16); AST/SGOT 365 U/L (7-37); BILIRUBIN,DIRECT < 0.1 MG/DL (0.0-0.2); BILIRUBIN,TOTAL 0.3 MG/DL (0.2-1.0); BLOOD UREA NITROGEN 30 MG/DL (7-18); CALCIUM LEVEL 8.8 MG/DL (8.5-10.1); CARBON DIOXIDE LEVEL 29 MEQ/L (21-32); CHLORIDE LEVEL 97 MEQ/L (98-107); CREATININE FOR GFR 1.07 MG/DL (0.55-1.30); FREE T4 1.32 NG/DL (0.76-1.46); GLOMERULAR FILTRATION RATE 57.6 (>51); GLUCOSE, FASTING 203 MG/DL (70-100); POTASSIUM SERUM 4.6 MEQ/L (3.5-5.1); SODIUM LEVEL 136 MEQ/L (136-145); TOTAL PROTEIN 7.6 GM/DL (6.4-8.2)
[2017-12-05 11:49] LABS: KETONE, URINE AUTO RFX 1+ mg/dL (NEGATIVE); MUCUS, URINE RFX SMALL (NEGATIVE); NITRITE, URINE AUTO RFX NEGATIVE (NEGATIVE); RBC, URINE AUTO RFX 3 /HPF (0-3); SPECIFIC GRAVITY UR AUTO RFX 1.021 (1.002-1.035); SQUAM EPITHELIAL CELL UR AURFX 1 /HPF (0-6); WBC, URINE AUTO RFX 6 /HPF (0-3)
[2017-12-05 11:50] LABS: LEUKOCYTE ESTERASE UR AUTO RFX 1+ (NEGATIVE)
[2017-12-07 10:51] LABS: HEPATITIS C VIRUS ABY INDEX < 0.0 INDEX (<0.8)
[2017-12-07 10:51] LABS: HEPATITIS B CORE ANTIBODY IGM NEGATIVE (NEGATIVE)
[2017-12-07 10:53] LABS: HEPATITIS A ANTIBODY IGM NEGATIVE (NEGATIVE)
[2017-12-07 10:56] LABS: HEPATITIS B SURFACE ANTIGEN NEGATIVE (NEGATIVE)
== END 2017-12-05 13:15 | disposition home or self-care (01) ==
LOC: M ED 10:19
DX: R94.5 Abnormal results of liver function studies (principal); M54.9 Dorsalgia, unspecified; R19.7 Diarrhea, unspecified; Z87.891 Personal history of nicotine dependence; Z86.69 Personal history of other diseases of the nervous system and sense organs; Z98.890 Other specified postprocedural states; Z88.8 Allergy status to other drugs, medicaments and biological substances; Z91.030 Bee allergy status
CPT/HCPCS: 76705

== ENCOUNTER 2018-02-19 09:08 | Emergency (ER) | payer OTHER ==
[2018-02-19] MEDS: FLUORESCEIN OPHTH 1 MG STRIP OS (09:45)
[2018-02-19] MEDS: TETRACAINE 0.5% OPHTH SOLN 4ML OS (09:45)
[2018-02-19] MEDS: GENTAMICIN 0.3% OPHTH OINT 3.5 GM OS (10:15)
[2018-02-19] MEDS ORDERED: GENTAMICIN SULFATE 0.1% OINT 15 GM TOP (16:00)
== END 2018-02-19 10:56 | disposition home or self-care (01) ==
LOC: M ED 09:08
DX: S05.02XA Injury of conjunctiva and corneal abrasion without foreign body, left eye, initial encounter (principal); H04.322 Acute dacryocystitis of left lacrimal passage; X58.XXXA Exposure to other specified factors, initial encounter; Y92.89 Other specified places as the place of occurrence of the external cause; E11.9 Type 2 diabetes mellitus without complications; F32.9 Major depressive disorder, single episode, unspecified; Z91.5 Personal history of self-harm; M54.9 Dorsalgia, unspecified; Z79.899 Other long term (current) drug therapy
CPT/HCPCS: 99283

== ENCOUNTER → 2018-08-19 | Outpatient (CLI) | payer OTHER | LOC: M WUC 10:51 | DX: S62.346A Nondisplaced fracture of base of fifth metacarpal bone, right hand, initial encounter for closed fracture (principal); X58.XXXA Exposure to other specified factors, initial encounter; Y92.9 Unspecified place or not applicable; Y93.9 Activity, unspecified; Y99.9 Unspecified external cause status | CPT/HCPCS: 73130 ==

== ENCOUNTER 2019-07-21 22:38 | Emergency (ER) | payer OTHER ==
[~2019-07-21] VITALS: Ht 157.5 cm; Wt 43.2 kg
[~2019-07-21 22:38] MED LIST changes: +GENT0.3O15 OS; +IBUP80TA PO; +PRED20TA PO; +TIZA2CAP PO; -TIZA2CAP3 PO; +ZOFR4TAB14 PO; +medical marijuana PO
[2019-07-21] MEDS ORDERED: LIDOCAINE 1% MDV INJ 50 ML VIAL SC ONE (23:15)
[2019-07-21] MEDS ORDERED: TETANUS/DIPHTHERIA TOX ADSORB ADULT 0.5ML SYR/VIAL (90714) IM ONE (23:15)
[2019-07-21] MEDS ORDERED: traMADol 50 MG TAB (BULK 4 TAB ED) PO ONE (23:30)
[2019-07-22 00:09] VITALS: BP 148/85
== END 2019-07-22 00:11 | disposition home or self-care (01) ==
LOC: M ED 22:38
DX: S91.114A Laceration without foreign body of right lesser toe(s) without damage to nail, initial encounter (principal); W25.XXXA Contact with sharp glass, initial encounter; Y92.008 Other place in unspecified non-institutional (private) residence as the place of occurrence of the external cause; G89.29 Other chronic pain; M54.5 Low back pain; F17.210 Nicotine dependence, cigarettes, uncomplicated; Z88.2 Allergy status to sulfonamides; Z91.030 Bee allergy status; Z79.899 Other long term (current) drug therapy

== ENCOUNTER → 2019-11-16 | Outpatient (REF) | payer OTHER | LOC: M LAB REF 16:06 | PROVIDERS: ATTEND Nurse Practitioner Family | DX: R30.0 Dysuria (principal) ==

== ENCOUNTER → 2019-12-02 | Outpatient (REF) | payer OTHER ==
[2019-12-02 14:36] LABS: CHLAMYDIA DNA AMPLIFICATION NEGATIVE (NEGATIVE); GC DNA AMPLIFICATION NEGATIVE (NEGATIVE)
== END ==
LOC: M LAB REF 12:18
PROVIDERS: ATTEND Nurse Practitioner Family
DX: R39.89 Other symptoms and signs involving the genitourinary system (principal)

== ENCOUNTER → 2019-12-15 | Outpatient (REF) | payer OTHER ==
[2019-12-15 13:14] LABS: APPEARANCE, URINE HAZY (CLEAR); BACTERIA, URINE AUTO NEGATIVE (NEGATIVE); BILIRUBIN, URINE AUTO NEGATIVE (NEGATIVE); BLOOD, URINE BLOOD NEGATIVE (NEGATIVE); CALCIUM OXALATE CRYSTALS LARGE; COLOR, URINE YELLOW (YELLOW); GLUCOSE, URINE (UA) AUTO NEGATIVE (NEGATIVE); KETONE, URINE AUTO NEGATIVE (NEGATIVE); LEUKOCYTE ESTERASE, URINE AUTO NEGATIVE (NEGATIVE); MUCUS, URINE SMALL (NEGATIVE); NITRITE, URINE AUTO NEGATIVE (NEGATIVE); PROTEIN, URINE AUTO NEGATIVE (NEGATIVE); RBC, URINE AUTO 2 /HPF (0-3); SQUAMOUS EPITHELIAL CELL UR AU 1 /HPF (0-6); UROBILINOGEN, URINE AUTO 0.2 mg/dL (0.0-2.0); WBC, URINE AUTO 2 /HPF (0-3)
== END ==
LOC: M SMT 12:48
PROVIDERS: ATTEND Nurse Practitioner Women's Health
DX: R30.0 Dysuria (principal)

== ENCOUNTER → 2020-05-15 | Outpatient (REF) | payer OTHER | LOC: M LAB REF 18:34 | PROVIDERS: ATTEND Nurse Practitioner Family | DX: R30.0 Dysuria (principal) ==